=== PATIENT | female | born 1980 | race Caucasian/White ===

== ENCOUNTER 2018-02-13 09:16 | Day surgery (SDC) | payer OTHER ==
[2018-02-13 10:03] VITALS: O2SAT 100
[2018-02-13] MEDS ORDERED: Lactated Ringer's 500 ML IV ONE ×2 (11:05→11:45)
[2018-02-13] MEDS ORDERED: Propofol 10 mg/ml Inj (20 ML) ONE (11:10)
[2018-02-13] MEDS ORDERED: Lidocaine Hydrochloride 10 ML INJ ONE (11:19)
[2018-02-13 12:07] VITALS: TEMP 96.8
[2018-02-13 13:38] VITALS: RESP 16
[2018-02-13 13:44] VITALS: BP 106/61; PULSE 64
== END 2018-02-13 13:05 | disposition home or self-care (01) ==
LOC: C.ENDO 09:16
PROVIDERS: ATTEND Internal Medicine Gastroenterology
DX: K26.9 Duodenal ulcer, unspecified as acute or chronic, without hemorrhage or perforation (principal); K29.70 Gastritis, unspecified, without bleeding; K64.0 First degree hemorrhoids
CPT/HCPCS: 43239; 45380; 84703; 88305; J2704; J3010; J7120